=== PATIENT | female | born 1980 | race African-American/Black ===

== ENCOUNTER 2019-04-13 04:16 | Emergency (ER) | payer OTHER ==
[~2019-04-13] VITALS: Ht 154.9 cm; Wt 59.0 kg
[~2019-04-13 04:16] MED LIST: DIPHENHYDRAMINE25 M1 ORAL; KEFLEX500 MG ORAL; PREDNISONE20 MG ORAL
[2019-04-13] MEDS ORDERED: NKM (04:23)
[2019-04-13 04:25] VITALS: BP 127/81
--- NOTE | 2019-04-13 04:25 | NUR ---
ED Nurse Note: Pt ambulated to ED from home c/o bumps on her skin.
[2019-04-13] MEDS ORDERED: TEMOVATE30 GM TP (04:56)
[2019-04-13] MEDS ORDERED: ACYCLOVIR400 MG ORAL (04:56)
[2019-04-13] MEDS ORDERED: BENADRYL25 MG ORAL (04:56)
--- NOTE | 2019-04-13 04:57 | Emergency Room Report ---
History of Present Illness General Chief Complaint: Skin Rash/Abscess Source: Patient Present Illness HPI This is a 38-year-old female with no past medical history. She presents with chief complaint of a rash. She had a large rash that started her left leg a week ago. Her body broke out in rash. Slightly itching. No fever chills but no drainage. Never had this problem before. Nothing made it better. Scratching it worse. Allergies: Coded Allergies: No Known Allergies (Unverified , 05/23/15) Patient History Past Medical History: see triage record, old chart reviewed Past Surgical History: none Pertinent Family History: none Social History: Denies: smoking Last Menstrual Period: 03/17/19 Now: No : 3 Para: 3 Immunizations: other Reviewed Nursing Documentation: PMH: Agreed; PSxH: Agreed Nursing Documentation-PMH Past Medical History: No Stated History Review of Systems Eye: Denies: eye pain, blurred vision ENT: Denies: ear pain, nose congestion, throat swelling Respiratory: Denies: cough, shortness of breath Cardiovascular: Denies: chest pain, palpitations Gastrointestinal: Denies: abdominal pain, diarrhea, nausea, vomiting Musculoskeletal: Denies: back pain, joint pain Skin: Reports: rash Neurological: Denies: headache, numbness Endocrine: Denies: increased thirst, increased urine Hematologic/Lymphatic: Denies: easy bruising All Other Systems: negative except mentioned in HPI Physical Exam Vital Signs Date Time Temp Pulse Resp B/P (MAP) Pulse Ox O2 Delivery O2 Flow Rate FiO2 04/13/19 04:19 98.4 88 18 127/81 (96) 100 Room Air Vitals normal Sp02 EP Interpretation: reviewed, normal General Appearance: well appearing, no apparent distress, alert Head: normocephalic, atraumatic Eyes: bilateral eye PERRL, bilateral eye EOMI ENT: hearing grossly normal, normal pharynx Neck: full range of motion, supple, no meningismus Respiratory: chest non-tender, lungs clear, normal breath sounds Cardiovascular #1: regular rate, rhythm, no murmur Gastrointestinal: normal bowel sounds, non tender, no mass, no organomegaly, no bruit, non-distended Musculoskeletal: back normal, gait/station normal, normal range of motion Neurologic: alert, oriented x3 Psychiatric: mood/affect normal Skin: warm/dry, rash - Patient has a 3 cm salmon color oval lesion to the left calf area. She has small round circular lesion throughout her whole body along the skin line. Medical Decision Making Diagnostic Impression: Primary Impression: Pityriasis rosea ER Course She with a rash consistent with pityriasis rosacea. No evidence of abscess or cellulitis. Will discharge home. Last Vital Signs Date Time Temp Pulse Resp B/P (MAP) Pulse Ox O2 Delivery O2 Flow Rate FiO2 04/13/19 04:19 98.4 88 18 127/81 (96) 100 Room Air Status: unchanged Disposition: HOME, SELF-CARE Condition: Stable Scripts Acyclovir* (ACYCLOVIR*) 400 Mg Tablet 400 MG ORAL FIVE TIMES A DAY for 7 Days, TAB Prov: Rangel Duarte MD 04/13/19 Clobetasol Propionate (TEMOVATE) 30 Gm Cream..g. 30 GM TP BID, #60 GM Prov: Rangel Duarte MD 04/13/19 Diphenhydramine Hcl* (BENADRYL*) 25 Mg Capsule 50 MG ORAL Q6H PRN for Itching, #30 CAP Prov: Rangel Duarte MD 04/13/19 Additional Instructions: Follow up your doctor in 7 days. If symptoms do not improve, may need phototherapy. Return if symptoms worsen. Rangel Duarte MD Apr 13, 2019 04:57
--- NOTE | 2019-04-13 05:06 | NUR ---
ER DISCHARGE NOTE: Patient is cleared to be discharged per ERMD, pt is aox4, on room air, with stable vital signs. pt was given dc and prescription instructions, pt was able to verbalize understanding, pt id band removed pt is able to ambulate with steady gait. pt took all belongings.
== END 2019-04-13 05:06 | disposition home or self-care (01) ==
LOC: EMR 04:51
DX: L71.9 Rosacea, unspecified (principal)
CPT/HCPCS: 99282